=== PATIENT | male | born 1960 ===

== ENCOUNTER 2020-03-10 19:16 | Inpatient (IN) | payer MEDICARE ==
[2020-03-11 00:15] VITALS: BP 144/65
[2020-03-11] MEDS ORDERED: Maalox 30 mL Cup PO PRN (00:22)
[2020-03-11] MEDS ORDERED: Magnesium Hydroxide (MOM) 30 mL UDC PO PRN (00:22)
[2020-03-11] MEDS ORDERED: Ferrous Sulfate 325 MG TAB PO SCH (09:00)
[2020-03-11] MEDS ORDERED: Pantoprazole 40 mg EC Tab PO SCH (09:00)
--- NOTE | 2020-03-11 10:03 | Psychiatric Evaluation ---
DATE OF SERVICE: 03/10/2020 IDENTIFYING DATA: The patient is a 60-year-old male, currently homeless. Information obtained by directly interviewing the patient as well as reviewing the admission papers. JUSTIFICATION OF HOSPITALIZATION: The patient is admitted on 5149 being gravely disabled. CHIEF COMPLAINT: "I don't know." HISTORY OF PRESENT ILLNESS: This is the first psychiatric hospitalization for this patient. The patient is reported to have been grossly psychotic and trespassing and police were called and the patient has been believing that he was noted to be confused in [facility] and making statement being a hardware designer for ____ that he has not been making much sense and has been brought to the hospital Emergency Room and the patient has been found to be anemic and the patient was given a transfusion of one point of blood because the hemoglobin was low and transferred to the hospital for psychological evaluation and treatment. The patient is reported to have been drinking vodka on a daily basis. The patient is currently homeless. During the evaluation, the patient is not providing much of information and has been screaming, stating that he wants to be left alone. Sleep and appetite prior to the hospitalization are reported to be poor. PAST PSYCHIATRIC HISTORY: Details are not known. MEDICAL HISTORY: Physical examination is requested by Dr. Magdaleno. SUBSTANCE ABUSE HISTORY: The patient is reported to have been drinking alcohol, but at this time, the blood pressure and pulse are noted to be normal and then I am waiting to whether we need to start the patient on any detox protocol. The patient has been placed on the lorazepam and routine p.r.n. medications and the patient is going to be closely monitored. LEGAL PROBLEMS: None at this time. PHYSICAL OR SEXUAL ABUSE HISTORY: None. MENTAL STATUS EXAMINATION: The patient is a 60-year-old thin built, superficially cooperative. Eye contact is poor. Mood is noted to be irritable. Affect is constricted. Insight and judgment at this time are noted to be very much impaired. Impulse control is noted to be limited. The patient is getting easily frustrated. The patient has paranoia, but denies any command hallucinations. Insight and judgment at this time are noted to be still impaired. Impulse control is noted to be limited. Coping skills are noted to be limited. The patient is going to be placed on 1 mg twice a day of the haloperidol to start for the agitation and impulsive behavior and paranoia and once stabilized, the patient is going to be discharged to the [facility]. The patient's attention span is noted to be very poor at this time. The patient is not willing to participate in the interview. The patient's cognitive abilities could not be tested because of the uncooperative and hence the patient's behavior is reported to be a danger to self and others and the patient is gravely disabled at this time. The patient is also noted to be delusional and not making much sense. DIAGNOSTIC IMPRESSION: AXIS I: Unspecified psychosis, not due to substance or known physiological condition. AXIS II: None. AXIS III: As per Dr. Magdaleno. IMMEDIATE TREATMENT PLAN: The patient is going to be observed on inpatient unit, provided with supportive psychotherapy. The patient is going to be continued on Haldol 1 mg b.i.d. p.r.n. and the patient is going to be closely monitored. Once stabilized, the patient is going to be discharged to [facility] to be followed up on an outpatient basis. JOB# [id number]
--- NOTE | 2020-03-11 17:35 | History & Physical ---
ADMIT DATE: 03/10/2020 CHIEF COMPLAINT: The patient is on 5150 hold. HISTORY OF PRESENT ILLNESS: The patient is a 60-year-old male who has been transferred from [facility]. The patient was initially admitted on 03/09/2020. The patient was admitted with diagnosis of 5150 hold, anemia, alcohol abuse, ____ edema. The patient ____ anemia and the patient was found to have trace guaiac positive stool in the ER. The patient was transfused packed RBC at [facility]. After being medically cleared, the patient was transferred to [facility] for inpatient psych management. PAST MEDICAL HISTORY: Anemia, guaiac positive, alcohol abuse, unsuspected psychosis. PAST SURGICAL HISTORY: Knee surgery. MEDICATIONS: See medication reconciliation form. ALLERGIES: No allergies. SOCIAL HISTORY: Positive alcohol use. PHYSICAL EXAMINATION: GENERAL: The patient is in no acute distress. VITAL SIGNS: On admission; temperature 98.4, pulse 86, blood pressure 118/68, respiratory rate 20, pulse ox 95% on room air. HEENT: Normocephalic, atraumatic. Oropharynx is clear. NECK: Supple, no thyromegaly. CARDIOVASCULAR: S1, S2. No murmurs, rubs or gallops. RESPIRATORY: Clear. No wheezes or rhonchi. GASTROINTESTINAL: Soft, nontender, nondistended. Bowel sounds present. GENITOURINARY: No CVA tenderness. No suprapubic tenderness. BACK: No midline tenderness. EXTREMITIES: Equal pulses bilaterally, some edema. SKIN: Negative. PSYCHIATRIC: Unable to assess. NEUROLOGICAL: Cranial nerves II through XII intact. Extraocular muscles intact. Sensation intact. Muscle strength grossly normal. IMPRESSION: 1. Acute psychosis. 2. Anemia. 3. Alcohol abuse. 4. Status post knee surgery. PLAN: ____ by Psychiatry. Further recommendations per Psychiatry. JOB# [id number]
--- NOTE | 2020-03-12 14:49 | Progress Notes ---
DATE: 03/12/2020 SUBJECTIVE: Staff was spoken to. The patient is interviewed. Mood is noted to be irritable. Affect is constricted. Insight and judgment at this time are noted to be still impaired. Impulse control is noted to be limited. Coping skills are noted to be limited. The patient is ____ this morning, but at this time, he is calm. The patient is stating that he is going to be leaving tomorrow. He wants to go to a motel [address] and he stated that he has SSDI and I do not need to look into any discharges for him. The patient has no insight into his illness. Continues to be testing the limits. The patient is going to be given p.r.n. doses of the medications if he continues to be acting out. JOB# [id number]
--- NOTE | 2020-03-12 15:11 | General Progress Note ---
Subjective - Review of Systems Service Date: 03/12/20 Subjective: * Per nursing staff, patient having elevated temperature * Patient still on 5150 hold Objective - Physical Exam Vitals and I&O: Vital Signs Temp 99.2 F 03/12/20 05:44 Pulse 87 03/12/20 05:44 Resp 20 03/12/20 05:44 BP 133/78 03/12/20 05:44 Pulse Ox 96 03/12/20 05:44 Intake & Output 03/11/20 03/12/20 03/12/20 18:59 06:59 18:59 Intake Total 1200 360 Balance 1200 360 Intake: Oral 1080 360 Other 120 Other: # Voids 3 2 # Bowel Movements 0 0 Active Medications: Current Medications Acetaminophen (Tylenol) 650 mg PO Q4H PRN PRN Reason: Pain (Mild 1-3) Stop: 05/10/20 00:21 Al Hydrox/Mg Hydrox/Simethicone (Maalox) 30 ml PO Q4HR PRN PRN Reason: GI DISTRESS Stop: 05/10/20 00:21 Haloperidol (Haldol) 1 mg PO BID DANI; Protocol Stop: 05/10/20 16:59 Last Admin: 03/12/20 08:25 Dose: 1 mg Lorazepam (Ativan) 0.5 mg PO Q4HR PRN; Protocol PRN Reason: Anxiety Stop: 04/10/20 00:15 Last Admin: 03/12/20 10:18 Dose: 0.5 mg Magnesium Hydroxide (Milk Of Magnesia) 30 ml PO HS PRN PRN Reason: Constipation General: Alert, No acute distress Cardiovascular: Regular rate, Normal S1 Lungs: Clear to auscultation Abdomen: Bowel sounds, Soft Assessment/Plan - Assessment Assessment: * Pyrexia of unknown origin * Unspecified Psychosis * Alcohol Abuse * Anemia * S/P Knee Surgery - Plan Plan: * Continue psych meds * CBC ordered * CXR ordered
[2020-03-12] MEDS: Ferrous Sulfate 325 MG TAB PO SCH (16:20)
[2020-03-13] MEDS: Ferrous Sulfate 325 MG TAB PO SCH ×2 (08:53→16:22)
[2020-03-13] MEDS: Pantoprazole 40 mg EC Tab PO SCH (08:53)
--- NOTE | 2020-03-13 13:20 | Diagnostic Imaging Report ---
Portable chest x-ray Time: 1123 History: Cough Allowing for portable technique the heart size is normal. No focal pulmonary parenchymal processes. No hilar or mediastinal abnormalities. Impression: No acute abnormalities.
--- NOTE | 2020-03-13 17:09 | Progress Notes ---
DATE: 03/13/2020 PSYCHIATRIC PROGRESS NOTE SUBJECTIVE: Staff was spoken to. The patient is interviewed. Mood is noted to be irritable. Affect is constricted. The patient is still testing the limits. The patient is responding to internal stimuli. The patient has been given the low dose of the Haldol, but it does not seem to be working and the patient is still responding to internal stimuli, screaming and yelling and hence I have decided to increase the dose on the haloperidol to 5 mg twice a day and to follow the patient up. The patient is stating that he came from a motel and he wants to go back there. The patient has no insight into his illness. ASSESSMENT: The patient is still impulsive. PLAN: To continue the patient with the current medications and followup. JOB# [id number]
[2020-03-14] MEDS: Ferrous Sulfate 325 MG TAB PO SCH ×2 (10:00→16:39)
[2020-03-14] MEDS: Pantoprazole 40 mg EC Tab PO SCH (10:00)
--- NOTE | 2020-03-14 19:02 | Progress Notes ---
DATE: 03/14/2020 SUBJECTIVE: Staff was spoken to. The patient is interviewed. Mood is noted to be irritable. Affect is constricted. Insight and judgment are noted to be still impaired. Impulse control is noted to be limited. Coping skills are noted to be limited. The patient has been having difficult time to cope with the stress, continues to be paranoid and is responding to internal stimuli and is stating that he needs to go to a motel. He does not want to be in here. He has his own plan. ASSESSMENT: The patient is still impulsive and psychotic. PLAN: To continue the patient with the current medications. I encouraged the patient to verbalize the concerns rather than to act out. JOB# [id number]
[2020-03-14] MEDS ORDERED: Haloperidol Lactate 5 mg/mL 1mL Vial IM ONE (22:29)
[2020-03-15] MEDS: Pantoprazole 40 mg EC Tab PO SCH (08:11)
[2020-03-15] MEDS: Ferrous Sulfate 325 MG TAB PO SCH ×2 (08:11→16:57)
--- NOTE | 2020-03-15 13:56 | Progress Notes ---
DATE: 03/15/2020 SUBJECTIVE: Staff was spoken to. The patient is interviewed. Mood is noted to be irritable. Affect is constricted. The patient is pacing most of the time on the unit. The patient has no insight into his illness. The patient has been testing the limits. The patient has been reluctantly taking the medications. No side effects to the medications are noted at this time. ASSESSMENT: The patient is still psychotic. PLAN: To continue the patient with the current medications, work with the case checker with regards to placement of this patient. JOB# [id number]
[2020-03-16] MEDS: Ferrous Sulfate 325 MG TAB PO SCH ×2 (08:29→16:13)
[2020-03-16] MEDS: Pantoprazole 40 mg EC Tab PO SCH (08:29)
--- NOTE | 2020-03-16 15:15 | Progress Notes ---
DATE: 03/16/2020 PSYCHIATRIC PROGRESS NOTE SUBJECTIVE: Staff was spoken to. The patient is interviewed. Mood is noted to be irritable. Affect is constricted. The patient is stating that he does not need any placement. He does not want to go to any board and care. He wants to be left on his own terms. He wants to go to [place]. He states that he has been there all his life and he does not need any help. ASSESSMENT: The patient is still impulsive and paranoid. PLAN: To continue the patient with the current medications and follow. JOB# [id number]
[2020-03-17] MEDS: Pantoprazole 40 mg EC Tab PO SCH (06:44)
[2020-03-17] MEDS: Ferrous Sulfate 325 MG TAB PO SCH ×3 (08:57→17:43)
--- NOTE | 2020-03-17 20:32 | Progress Notes ---
DATE: 03/17/2020 SUBJECTIVE: Staff was spoken to. The patient is interviewed. Mood is noted to be irritable. Affect is constricted. Insight and judgment are noted to be still impaired. Impulse control is noted to be limited. The patient has been currently on 5 mg twice a day, haloperidol and has been able to tolerate the medications. No side effects to the medications are noted. The patient continues to be paranoid and the patient is going to be closely monitored with the side effects and the patient has been refusing any placement at this time, possibly the patient is going to be referred to a care home. JOB# [id number]
[2020-03-18] MEDS: Pantoprazole 40 mg EC Tab PO SCH ×2 (06:40→06:55)
[2020-03-18] MEDS: Ferrous Sulfate 325 MG TAB PO SCH ×2 (08:48→16:18)
--- NOTE | 2020-03-18 13:24 | Progress Notes ---
DATE: 03/18/2020 PSYCHIATRIC PROGRESS NOTE SUBJECTIVE: Staff was spoken to. The patient is interviewed. Mood is noted to be irritable. Affect is constricted. The patient is stating that he does not need to be in here. He can be discharged and he states that he has been trying his best to look for some place in [place] and he states that he does not need to have any particular place. He wants to be left alone by himself and he states that he gets his money tomorrow and there is no reason for him to be in here. JOB# [id number]
[2020-03-19] MEDS: Pantoprazole 40 mg EC Tab PO SCH (06:39)
[2020-03-19] MEDS: Ferrous Sulfate 325 MG TAB PO SCH (08:29)
--- NOTE | 2020-03-19 11:07 | Discharge Summary ---
DATE OF DISCHARGE: 03/19/2020 IDENTIFYING DATA: The patient is a 60-year-old male, currently homeless. JUSTIFICATION OF HOSPITALIZATION: The patient is admitted on 5150 for being gravely disabled. CHIEF COMPLAINT: "I don't know." DIAGNOSES AT THE TIME OF ADMISSION: AXIS I: Unspecified psychosis. AXIS II: None. AXIS III: As per Dr. Magdaleno. HOSPITAL COURSE AND RESPONSE TO TREATMENT: The patient has been placed on 5 mg twice a day of the Haldol and has been observed and was noted to be doing fairly well. Blood work was done by Dr. Magdaleno, has been reviewed and no major concerns are noted and the patient has been staying fairly well, but has been mentioning that he needs to go to a intermediate. He does not want any placement and hence the patient has been referred to shelters in [place]. MENTAL STATUS EXAMINATION: At the time of discharge noted to be stable. The patient is not suicidal or homicidal, and the patient is not presenting with any threats to harm self or others and is stating that he is already ____ check for this month and he is looking for a place to stay. DIAGNOSES AT THE TIME OF DISCHARGE: AXIS I: Unspecified psychosis. AXIS II: None. AXIS III: None. AFTERCARE PLAN: [facility] on an outpatient basis. [facility]# [id number]
== END 2020-03-19 14:40 | disposition home or self-care (01) | DRG 885 ==
LOC: GERO 21:30
PROVIDERS: ADMIT Psychiatry & Neurology Psychiatry; ATTEND Psychiatry & Neurology Psychiatry
DX: F29 Unspecified psychosis not due to a substance or known physiological condition (principal); D64.9 Anemia, unspecified; F10.10 Alcohol abuse, uncomplicated; Y90.9 Presence of alcohol in blood, level not specified; Z79.899 Other long term (current) drug therapy
CPT/HCPCS: 71045-TC; 83036-90; G0410; Z7610